=== PATIENT | female | born 2000 | race Caucasian/White ===

== ENCOUNTER → 2024-02-08 14:03 | Outpatient (BNVA) | payer OTHER, SELFPAY | PROVIDERS: Family Provider Family Medicine; PCP Pediatrics Adolescent Medicine; Visit Provider Nurse Practitioner Family | DX: R68.89 Other general symptoms and signs (principal) | CPT/HCPCS: 87804 ==

== ENCOUNTER 2025-06-17 12:58 | Inpatient (IN) | payer MEDICAID, SELFPAY ==
[2025-06-17] VITALS (64 sets, daily range): BP systolic 92–207; BP diastolic 56–91; PULSE 74–121; RESP 16–18; TEMP 36.9; O2SAT 87–100; BMI 38.4
[2025-06-17 13:13] LABS: Hematocrit 39.1 % (36-47); Hemoglobin 12.40 g/dL (11.27-16.99); Mean Corpuscular HGB Conc 31.7 g/dL (30-55); Mean Corpuscular Hemoglobin 26.4 pg (27-33); Mean Corpuscular Volume 83.2 fl (85-98); Nucleated Red Blood Cells % 0 %; Platelet Count 208 10^3/cmm (157-399); Red Blood Count 4.70 10^6/uL (3.85-5.65); White Blood Count 10.79 10^3/uL (3.29-11.43)
[2025-06-17] MEDS: ROPivacaine syringe 100 MG/50 ML SYRINGE 13 MG EPIDURAL ×2 (15:00→18:37)
--- NOTE | 2025-06-17 15:17 | ANES.PREANE2 ---
Pre-Anesthetic Assessment Height/Weight: Height 1.65 m Weight 104.78 kg Pulse Resp BP Pulse Ox O2 Del Method 92 16 148/85 99 Room Air 06/17/25 15:11 06/17/25 13:05 06/17/25 15:11 06/17/25 15:11 06/17/25 13:06 Preop Diagnosis: Labor Epidural Familial anesthetic complications: none Was Beta Sania taken within 24 hours: N/A Was Clonidine taken within 24 hours: N/A Social No alcohol and No tobacco Exam alert, oriented x 3, clear to auscultation bilaterally and regular rate & rhythm Airway Cervical ROM: within normal limits Mallampati: Class II Dentition: full History/ROS No significant complaints Pulmonary None reported CV/HEM None reported None reported Hepatic None reported GI None reported Metabolic None reported Musc/skel None reported Neuropsych Anxiety Anesthetic Plan ASA status: 2 Anesthesia: Regional (specify below) (epidural) Risk of > 500 ml blood loss (7ml/kg in children): Yes, adequate IV access and fluids planned Medications/Allergies Home Medications ?Medication ?Instructions ?Recorded ?Confirmed ?Last Taken ?Type norgestimate 0.18 mg/0.215mg/0.25 1 tab PO DAILY 12/01/22 02/08/24 Unknown History mg-ethinyl estradiol 0.025 mg tablet ([id number]-[id number]) sertraline 100 mg tablet (Zoloft) 100 mg PO DAILY #30 tabs 11/10/23 02/08/24 Unknown Rx Allergies Allergy/AdvReac Type Severity Reaction Status Date / Time adhesive Allergy Intermediate Redness/swe Verified 08/14/24 10:54 lling/hives /rash Current Medications Generic Name Dose Route Start Last Admin Trade Name Freq PRN Reason Stop Dose Admin Sodium Chloride 1,000 mls @ 999 mls/hr 06/17/25 14:05 06/17/25 14:13 Sodium Chloride 0.9% IV 999 mls/hr .Q1H1M PRN Administration See label comments Misoprostol 25 mcg 06/17/25 13:45 06/17/25 13:41 Misoprostol 100 Mcg Tablet SUBLINGUAL 06/17/25 21:46 25 mcg Q4H NAZARIO Administration PFSH Anesthesia Social History Smoking and tobacco/nicotine status: never used tobacco/nicotine Second hand smoke exposure: No Alcohol intake: never Substance/Drug Use: never Female Reproductive History : 1 Data Anesthesia 06/17/25 12:50 Short CBC 06/17/25 Range/Units 12:50 WBC 10.79 (3.29-11.43) 10^3/uL Hgb 12.40 (11.27-16.99) g/dL Hct 39.1 (36-47) % MCV 83.2 L (85-98) fl Plt Count 208 (157-399) 10^3/cmm Neut % (Auto) 75.6 % Neut # (Auto) 8.16 H (1.8-7.7) 10^3/uL Blood Bank 06/17/25 12:50 Blood Type A Positive Rho(D) Type Rh positive Antibody Screen Negative Anesthesia Procedures Epidural Time Out Performed: Yes Consents Signed: Procedure Consent and NPO Consent Consent: from patient, risks and benefits reviewed and patient agrees to proceed Lumbar Level: L3-L4 Epidural position: sitting Epidural procedure: sterile prep of area, 1% lidocaine to numb the area, 18 g needle, negative for paresthesia passed, neg for paresthesia, test dose given, 1.5% xylocaine 1:200k epi, 0.2% Ropivacaine bolus ml, placed PCEA, no systemic response, sterile dressing applied, L.U.D. no apparent complications and 0.2% Ropiavacaine @ mls/hr (13) Additional Comments: pt. tolerated with some anxiety, difficulty holding still, x2 spaces tried, catheter threaded with mild resistance. BOBBY at 6cm.
--- NOTE | 2025-06-17 15:46 | P.ANESUD_ITS ---
Pre-Anesthetic Update Pre-Anesthetic Assessment: Date of Surgery/Procedure: 06/17/25 Preop Mayte gnosis: Labor Labs Last 48hrs: Short CBC 06/17/25 Range/Units 12:50 WBC 10.79 (3.29-11.43) 10^ 3/uL Hgb 12.40 (11.27-16.99) g/ dL Hct 39.1 (36-47) % MCV 83.2 L (85-98) fl Plt Count 208 (157-399) 10^3/c mm Neut % (Auto) 75.6 % Neut # (Auto) 8.16 H (1.8-7.7) 10^3/u L Blood Bank 06/17/25 12:50 Blood Type A Positive Rho(D) Type Rh positive Antibody Screen Negative Vitals: Pulse Rate 92 06/17/25 15:41 Pulse Rhythm Regular 06/17/25 13:06 Pulse Strength 3+ Normal 06/17/25 13:06 Respiratory Rate 16 06/17/25 13:05 Respiratory Effort Spontaneous, Non- Labored, Easy 06/17/25 13:06 Respiratory Depth Normal 06/17/25 13:06 Respiratory Patter n Normal 06/17/25 13:06 Blood Pressure 145/91 06/17/25 15:41 Pulse Oximetry 99 06/17/25 15:41 Oxygen Delivery Me thod Room Air 06/17/25 13:06 Anesthesia Procedures Other Information: Pt. not getting comfortable after epidural placement, pt. unable to determine sensation level in extremities or if contractions are decreasing in intensity, epidural replaced at same level L3-L4, BOBBY at 6cm, catheter threaded easily.
--- NOTE | 2025-06-17 20:29 | PM.OPHPUD ---
Labor & Delivery H&P Update Date of Procedure: June 17, 2025 Date H&P Performed: 06/11/25 Changes to previous documentation: The patient is a 25 year old G1 at 39.6 ega presenting in active labor with consistent contractions, cervical change and SRom Admission Diagnosis: Preop diagnosis: Labor Other information: Sandy has had an unremarkable . She has had consistent care and significant problems. Her lab work has been unremarkable. She was gbs neg, glucose screen neg. Blood type is A neg. Antibody screen is neg. Her infectious disease profile is wnl. Related Problem List Diagnoses 1. 39 weeks gestation of : 2. Active labor: A&P Assessment and plan 1. 39 weeks gestation of : I anticipate routine labor and vaginal delivery. Status: Acute 2. Active labor: Status: Acute PDMP PDMP Reviewed: Not Reviewed
[2025-06-17] MEDS: ondansetron 2 mg/ML SDV 2 mL 4 MG IVP (21:47)
[2025-06-17] MEDS: ROPivacaine syringe 100 MG/50 ML SYRINGE 10 MG EPIDURAL (22:04)
[2025-06-17] MEDS: metoclopramide 5 mg/mL SDV 2 mL 10 MG IV (23:22)
[2025-06-18] VITALS (14 sets, daily range): BP systolic 108–130; BP diastolic 63–82; PULSE 79–123; RESP 15–17; TEMP 36.4–36.8; O2SAT 98
[2025-06-18] MEDS: oxytocin 30 UNIT/500 ML BAG 600 UNIT IV (00:49)
--- NOTE | 2025-06-18 01:12 | P.PCNOB_ITS ---
Delivery Note: Date of delivery: June 18, 2025 Pre-delivery diagnoses: 25 year old G1 female at 39 weeks ega pr esenting with spontaneous rupture of membranes Post-delivery diagnoses: Status post vacuum assisted delivery Procedure: Vacuum assisted vaginal delivery Delivering Physician: Ye Diamond Estimated blood loss (mL): 250 Pre-Delivery Course: The patient presented to the hospital with spontaneous rupture of membranes. Cytotect 25 mcg sl was given. An epidural was placed. She gradually progressed to complete without difficulty. Delivery: The patient progressed to complete without difficulty. She pushed, and was allowed to labor down multiple times. Please see nurses note for details. After pushing for several hours, the baby made minimal change in position, but only had increase caput. position was +2 with pushing. Because of the lack of progress I discussed options with the parents including the risks of and vacuum. Given her circumstances I recommended the vacuum and the patient and her agreed to proceed. The vacuum was placed during 3 pushes on 2 consecutive contractions. The baby was delivered from an ROP position. He was placed on his mothers abdomen. His cord was clamped and cut approx 1 minute after delivery. The baby weighed 8 lbs with apgars of 8, 9. Meconium was noted. There was no nuchal cord. A 2nd degree midline tear was noted. It was repaired with 2-0 vicryl in the usual fashion. Both mom and baby are in stable condition. Post-Delivery Status: Good History History History 1 Term Miscarriages/Ectopic Living Children A&P Assessment and plan 1. Vacuum-assisted vaginal delivery: I anticipate routine care. PDMP PDMP Reviewed: Not Reviewed Coding Level of Care Code Acute Code for Chg Fwd Diagnoses Vacuum-assisted vaginal delivery Z37.9
--- NOTE | 2025-06-18 04:13 | PC.NURSE ---
patient and moved to room at this time accompanied by this RN
[2025-06-18] MEDS: benzocaine-menthol 78 gm Canister 1 SPRAY TOPICAL (06:00)
[2025-06-18] MEDS: HYDROcodone-acetaminophen 5-325 mg Tablet PO (06:00)
[2025-06-18] MEDS: PRENATAL VIT NO.130/IRON/FOLIC 1 EACH TABLET PO (09:46)
[2025-06-18 13:00] LABS: Hematocrit 26.9 % (36-47); Hemoglobin 8.60 g/dL (11.27-16.99); Mean Corpuscular HGB Conc 32.0 g/dL (30-55); Mean Corpuscular Hemoglobin 27.2 pg (27-33); Mean Corpuscular Volume 85.1 fl (85-98); Platelet Count 191 10^3/cmm (157-399); Red Blood Count 3.16 10^6/uL (3.85-5.65); White Blood Count 16.38 10^3/uL (3.29-11.43)
[2025-06-19 04:00] VITALS: BP 118/81; PULSE 96; RESP 16; TEMP 36.7
[2025-06-19 04:39] LABS: Hematocrit 26.5 % (36-47); Hemoglobin 8.50 g/dL (11.27-16.99); Mean Corpuscular HGB Conc 32.1 g/dL (30-55); Mean Corpuscular Hemoglobin 27.5 pg (27-33); Mean Corpuscular Volume 85.8 fl (85-98); Nucleated Red Blood Cells % 0 %; Platelet Count 182 10^3/cmm (157-399); Red Blood Count 3.09 10^6/uL (3.85-5.65); White Blood Count 12.69 10^3/uL (3.29-11.43)
--- NOTE | 2025-06-19 07:53 | P.DS_ITS ---
Discharge Providers [employer] Date of Admission: 06/17/25 12:58 Date of Discharge: 06/19/25 Attending Provider at Admission: Ye Diamond MD Attending Provider at Discharge: Ye Diamond MD Primary Care Provider: Ye Diamond MD Diagnoses at Discharge Discharge Diagnosis 1. Vacuum-assisted vaginal delivery: Reason for Visit Reason for Visit: poss rom Hospital Course Hospital Course The patient presented to the hospital with spontaneous rupture membranes. She was placed on Cytotec 25 mcg sublingual. An epidural was placed. She gradually progressed to complete without difficulty. She pushed for several hours. Ultimately a vacuum was used during 2 contractions to deliver her baby without difficulty. She had a second-degree tear. It was repaired in the usual fashion. Her course was unremarkable. Her bleeding was within normal limits. Her pain was well-controlled. She breast-fed well. Information Peripartum Data: Delivery Method: Vaginal Physical Exam Narrative: The patient is alert. She appears comfortable. Her heart has a regular rate and rhythm with no murmurs appreciated. Lungs are clear to auscultation bilaterally. Her fundus is firm and below the umbilicus. Urinary Catheter Management: Khan: Cath Placed During This Visit: yes, but has since been removed by the nurse Reason for Continuing Indwelling Catheter: Decision to DC Catheter Urinary Catheter Date of Insertion: 06/17/25 Urinary Catheter Time of Insertion: 15:20 Date Urinary Catheter Removed: 06/17/25 Time Urinary Catheter Discontinued: 20:14 History History History 1 Term Miscarriages/Ectopic Living Children Discharge Data Studies Completed and Pending Laboratory Results WBC 12.69 10^3/uL (3.29-11.43) H 06/19/25 04:29 RBC 3.09 10^6/uL (3.85-5.65) L 06/19/25 04:29 Hgb 8.50 g/dL (11.27-16.99) L 06/19/25 04:29 Hct 26.5 % (36-47) L 06/19/25 04:29 MCV 85.8 fl (85-98) 06/19/25 04:29 MCH 27.5 pg (27-33) 06/19/25 04:29 MCHC 32.1 g/dL (30-55) 06/19/25 04:29 RDW 15.0 % (12.1-15.1) 06/19/25 04:29 Plt Count 182 10^3/cmm (157-399) 06/19/25 04:29 MPV 12.3 fL (7.4-10.4) H 06/19/25 04:29 Neut % (Auto) 71.0 % 06/19/25 04: Lymph % (Auto) 19.4 % 06/19/25 04:29 [place] % (Auto) 6.9 % 06/19/25 04:29 Eos % (Auto) 1.7 % 06/19/25 04:29 Baso % (Auto) 0.4 % 06/19/25 04:29 Neut # (Auto) 9.02 10^3/uL (1.8-7.7) H 06/19/25 04:29 Lymph # (Auto) 2.5 10^3/uL (0.8-4.8) 06/19/25 04:29 [place] # (Auto) 0.9 10^3/uL (0.2-0.9) 06/19/25 04:29 Eos # (Auto) 0.2 10^3/uL (0.0-0.8) 06/19/25 04:29 Baso # (Auto) 0.1 10^3/uL (0.0-0.1) 06/19/25 04:29 Nucleated RBC % (auto) 0 % 06/19/25 04:29 Nucleated RBCs # 0.0 /100WBC 06/19/25 04:29 Blood Type A Positive 06/17/25 12:50 Rho(D) Type Rh positive 06/17/25 12:50 Antibody Screen Negative 06/17/25 12:50 Vitals Last Vital Signs Temp 98.1 F 06/19/25 04:00 Pulse 96 06/19/25 04:00 Resp 16 06/19/25 04:00 BP 118/81 06/19/25 04:00 Pulse Ox 98 06/18/25 07:10 O2 Del Method Room Air 06/18/25 16:02 Results Labs OB ([facility]): Blood Type A Positive 06/17/25 Antibody Screen Negative 06/17/25 Hct, (36-47) 26.5 % L Today Hgb, (11.27-16.99) 8.50 g/dL L Today Rho(D) Type Rh positive 06/17/25 Plt Count, (157-399) 182 10^3/cmm Today Discharge Plan Discharge Patient Disposition: Home Condition: Stable Prescriptions: New ibuprofen 800 mg Tablet 800 mg PO TID Qty: 45 0RF Vitamin 27 mg iron- 800 mcg Tablet 1 tab PO DAILY Qty: 90 0RF Continued sertraline [Zoloft] 100 mg tablet 100 mg PO DAILY Qty: 30 0RF Discontinued norgestimate-ethinyl estradiol [Zmb-So-Hjuyflev] 0.18/0.215/0.25 mg-25 mcg tablet 1 tab PO DAILY Discharge Order = DC NOW: Discharge Order (Routine); Ordered 06/19/25 Ordered By: Ye Diamond Referrals: Ye Diamond MD [Primary Care Provider, [facility]] - 07/31/25 9:50 am Discharge Diet: Usual diet Discharge Activity: Limit activity as instructed Patient Instructions: Depression (DC), Opioid Safety (DC), Preeclampsia and Eclampsia After Delivery (GEN), Hemorrhage (DC), OB Discharge Report, OB Food/Drug Interaction Guide, OB Care at Home, Opioid Safety, OB Vaginal Deliveries, Patient Portal & Riccardo Instructions, Abnormal Bleeding Discharge Attestations [employer] Time Spent in Discharge Care*: less than 30 min Coding Level of Care Code Acute Code for Chg Fwd Diagnoses Vacuum-assisted vaginal delivery Z37.9
--- NOTE | 2025-06-19 08:00 | ANE.PACU2 ---
Inpatient post-anesthesia follow up: Airway intact: Yes Vital signs: Temperature 98.0 F Pulse Rate 101 Respiratory Rate 16 Blood Pressure 123/82 Pulse Oximetry 98 Oxygen Delivery Me thod Room Air Oxygen Flow Rate Fraction of Inspir ed Oxygen Hydration adequate: Yes Nausea and vomiting: No Pain level: 1 Mental status: Baseline Epidural Start/End: Epidural Start Date: 06/17/25 Epidural Start Time: 14:48 Epidural End Date: 06/18/25 Epidural End Time: 03:30
[2025-06-19] MEDS: PRENATAL VIT NO.130/IRON/FOLIC 1 EACH TABLET PO (08:58)
[2025-06-19 10:25] VITALS: BP 111/70; PULSE 104; RESP 16; TEMP 36.7; O2SAT 98
[2025-06-19 14:00] VITALS: BP 123/82; PULSE 101; RESP 16; TEMP 36.7; O2SAT 98
== END 2025-06-19 14:55 | disposition home or self-care (01) | DRG 807 ==
LOC: OPOB 12:58 → OBGYN 12:58
PROVIDERS: Admitting Provider Family Medicine; PCP Family Medicine; Visit Provider Family Medicine
DX: O70.1 Second degree perineal laceration during delivery (principal); Z37.0 Single live birth; Z3A.39 39 weeks gestation of pregnancy
CPT/HCPCS: 36415; 51702; 59025; 59409; 83986; 85025; 85027; 86850; 86900; 96374; 99211; J2405; J2590; J2765; J2795; J7030; J7121; J9999